=== PATIENT | male | born 1985 | race Caucasian/White ===

== ENCOUNTER → 2020-03-26 | Outpatient (CLI) | payer BC ==
--- NOTE | 2020-03-26 10:12 | CT ---
EXAMINATION TYPE: CT brain cspine wo con DATE OF EXAM: 03/26/2020 COMPARISON: None HISTORY: headache with sexual activity CT DLP: 1700 mGycm Automated exposure control for dose reduction was used. TECHNIQUE: CT scan of the head and cervical spine are performed without contrast. FINDINGS: There is no acute intracranial hemorrhage, mass effect, or midline shift identified. The ventricles and sulci are within normal limits in size. No extra-axial fluid collections. The globes are grossly symmetric. The visualized sinuses are clear. Cervical spine is visualized in its entirety from C1 through upper thoracic levels and demonstrates s atisfactory alignment without evidence of acute fracture or dislocation. Prevertebral soft tissue ap pears within normal limits. No Canal stenosis. The C1-C2 articulation is unremarkable. IMPRESSION: 1. No acute intracranial hemorrhage, mass effect, or midline shift is seen. 2. No acute fracture or dislocation of the cervical spine.
== END | disposition home or self-care (01) ==
LOC: RADCTMAIN 09:28
PROVIDERS: ATTEND Family Medicine
DX: G44.82 Headache associated with sexual activity (principal)
CPT/HCPCS: 70450; 72125